=== PATIENT | female | born 1955 | race Caucasian/White ===

== ENCOUNTER → 2016-10-14 | Outpatient (CLI) | payer OTHER | LOC: FIMAGING 08:21 | PROVIDERS: ATTEND Family Medicine | DX: Z12.31 Encounter for screening mammogram for malignant neoplasm of breast (principal); Z13.820 Encounter for screening for osteoporosis; M81.0 Age-related osteoporosis without current pathological fracture; Z78.0 Asymptomatic menopausal state; E07.9 Disorder of thyroid, unspecified; Z79.899 Other long term (current) drug therapy | CPT/HCPCS: G0202 ==

== ENCOUNTER 2016-10-25 16:21 | Emergency (ER) | payer OTHER ==
[2016-10-25 16:36] VITALS: BP 188/118; PULSE 72; RESP 16; TEMP 98.2; O2SAT 96
--- NOTE | 2016-10-25 16:55 | UCPHY ---
H & P Patient Type: Established Chief Complaint Nursing Narrative: Pt. states tripped over dog fell into wooden chair(bridge of nose and left frontal. c/o rt knee pain,c-spine tenderness +, dizzy/lightheaded and slight nausea Time Seen by Provider: 10/25/16 16:46 HPI/ROS: Chief complaint: Fall, head injury HPI: 61-year-old woman sustained a mechanical fall this afternoon when she tripped over diagnostic itching. She struck her head on the chair and her face on her glasses. She had no loss of conscious. She is not taking blood thinning medications. She is stating that she feels a little bit confused and fuzzy. She has a large hematoma on her left forehead and has a laceration to her nose. Bit of neck pain. Some nausea no vomiting. No chest pain shortness of breath. Denies any extremity injuries, no chest or abdominal injuries. ROS: 10 point Review of Systems is negative except as noted in the HPI. Past medical history: Hypothyroidism Medications: Synthroid Allergies no known drug allergies Physical exam: Gen: Awake, Alert, No Distress HEENT: She has a very large 7 cm hematoma on her left forehead. Nose: She has tenderness over the nasal bridge with 2 small lacerations on either side consistent with lacerations from her eyeglasses. No septal hematoma. No epistaxis. Eyes: PERRLA, EOMI Mouth: Moist mucosa Neck: Supple, no JVD Chest: nontender, lungs clear to auscultation Heart: S1, S2 normal, no murmur Abd: Soft, non-tender, no guarding Back: no CVA tenderness, no midline tenderness Ext: no edema, non-tender Skin: no rash Neuro: CN II-XII intact, Sensation grossly intact, Strength 5/5 in bilateral upper and lower extremities - Personal History Current Tetanus Diphtheria and Acellular Pertussis (TDAP): Yes - Medical/Surgical History Hx Asthma: Yes Hx Chronic Respiratory Disease: No Hx Diabetes: No Hx Cardiac Disease: No Hx Renal Disease: No Hx Cirrhosis: No Hx Alcoholism: No Hx HIV/AIDS: No Hx Splenectomy or Spleen Trauma: No Other PMH: hernia. c section. eye muscle surgery. thyroid - Family History Significant Family History: No pertinent family hx - Social History Smoking Status: Former smoker Constitutional: Initial Vital Signs Temperature (C) 36.8 C 10/25/16 16:28 Heart Rate 72 10/25/16 16:28 Respiratory Rate 16 10/25/16 16:28 Blood Pressure 188/118 H 10/25/16 16:28 O2 Sat (%) 96 10/25/16 16:28 O2 Delivery Mode Room Air Allergies/Adverse Reactions: No Known Allergies Allergy (Verified 10/25/16 16:27) Home Medications: Medication Instructions Recorded Albuterol Hfa Anes Only [Proair 0 puffs IH 09/29/11 Hfa Icu (RX)] Levothyroxine [Synthroid 125 mcg 125 mcg PO DAILY06 09/29/11 (RX)] Medical Decision Making - Diagnostics Imaging Results: Imaging Impressions Cervical Spine CT 10/25/16 16:54 Impression: 1. No acute intracranial abnormality seen. 2. Punctate calcifications left frontal lobe periventricular white matter that is probably post infectious. 3. Fracture of the left nasal bone with about 1 mm of depression. 4. Soft tissue contusion over the left frontal bone. 5. Multilevel degenerative disk disease along with facet hypertrophy more prominent on the right side as detailed above. Findings discussed with Dusty Azrola MD at 17:46 hour, 10/25/2016. Head CT 10/25/16 16:54 Impression: 1. No acute intracranial abnormality seen. 2. Punctate calcifications left frontal lobe periventricular white matter that is probably post infectious. 3. Fracture of the left nasal bone with about 1 mm of depression. 4. Soft tissue contusion over the left frontal bone. 5. Multilevel degenerative disk disease along with facet hypertrophy more prominent on the right side as detailed above. Findings discussed with Dusty Arzola MD at 17:46 hour, 10/25/2016. Imaging: Discussed imaging studies w/ highway engineering technician Radiologist ED Course/Re-evaluation: Patient with scalp hematoma, nasal fracture in some spine abrasions status post fall. No acute intracranial or cervical injury. She is awake and alert and appropriate. Will discharge with follow-up with primary care physician. - Data Points Medications Given: Discontinued Medications Hydrocodone Bitart/Acetaminophen ([place] 5/325) 1 tab PO EDNOW ONE Stop: 10/25/16 17:38 Last Admin: 10/25/16 17:38 Dose: 1 tab Departure - Departure Disposition: Home, Routine, Self-Care Clinical Impression: Nasal fracture, Hematoma, Abrasion Condition: Good Instructions: Nasal Fracture (ED), Abrasion (ED), Facial Contusion (ED) Additional Instructions: He may alternate ibuprofen with acetaminophen as needed for pain. Apply ice to the nose and hematoma for 15 minutes of every hour while awake. Follow up with your primary care physician in 3-4 days for re-evaluation. Referrals: Tiffany Knott [Primary Care Provider] - As per Instructions - PQRS PQRS Measurement: NA
[2016-10-25] MEDS ORDERED: HYDROCODONE/APAP 5/325 TAB ONE (17:31)
[2016-10-25] MEDS ORDERED: HYDROCODONE/APAP 5/325 TAB PO ONE (17:37)
== END 2016-10-25 17:58 | disposition home or self-care (01) ==
LOC: CED 16:21
DX: S02.2XXA Fracture of nasal bones, initial encounter for closed fracture (principal); S00.83XA Contusion of other part of head, initial encounter; S30.810A Abrasion of lower back and pelvis, initial encounter; W19.XXXA Unspecified fall, initial encounter; E03.9 Hypothyroidism, unspecified; Z87.891 Personal history of nicotine dependence
CPT/HCPCS: 70450-PO; 72125-PO; 99215-PO; G0463-PO